=== PATIENT | male | born 1975 | race Caucasian/White ===

== ENCOUNTER 2018-08-16 10:19 | Observation (INO) ==
[2018-08-16] MEDS ORDERED: Ibuprofen 400 MG TABLET PO PRN ×2 (11:37→15:20)
[2018-08-16] MEDS ORDERED: Naloxone 0.4 MG/ML INJ IVP PRN ×2 (11:37→15:20)
[2018-08-16] MEDS ORDERED: *HR* OxyCODONE Immed Rel 5 MG TABLET PO PRN ×4 (11:37→15:20)
[2018-08-16] MEDS ORDERED: *HR* HYDROcodone/Acet 5/325 mg TABLET PO PRN (11:37)
[2018-08-16] MEDS ORDERED: *HR* Midazolam HCl 2 MG/2 ML VIAL ONE ×2 (11:45→12:50)
[2018-08-16] MEDS ORDERED: *HR* Propofol 200 MG/20 ML VIAL IVP ONE (11:45)
[2018-08-16] MEDS ORDERED: *HR* FentaNYL (PF) 100 MCG/2 ML VIAL ONE ×2 (11:45→13:28)
[2018-08-16] MEDS ORDERED: Lidocaine -MPF 2% 2 ML VIAL ONE (11:45)
--- NOTE | 2018-08-16 12:00 | Orthopedic History & Physical ---
Date of Encounter: 08/16/18 Time of Encounter: 11:54 Assessment and Plan (1) Puncture wound of hand, right Current visit: No Status: Acute I did discuss the diagnosis in detail with the patient. He did have a puncture wound to the right hand going into the radial wrist area from a muzzle barge loader. The patient does not believe there was any significant dirt on the end of the muzzle barge loader however he is not entirely sure. I did discuss options with the patient and my recommendation is for debridement and irrigation at the base of the right thumb given my concern for contamination of the trapezium fracture. We will also remove the bony fragment along the radial wrist area. The risks discussed included but were not limited to stiffness, bleeding, infection, blood clots, damage to neurovascular structures, tendons, ligaments, and bone. Also discussed was the risk of continued symptoms and possible need for further procedures. I did discuss the anesthesia risks including stroke, heart attack, and . I did discuss the reasonable, foreseeable postoperative course with the patient. The patient did wish to proceed and consent was obtained. We will keep him overnight for 24 hours of antibiotic coverage and discharge him tomorrow. Qualifiers: Encounter type: initial encounter Foreign body presence: without foreign body Qualified Code(s): S61.431A - Puncture wound without foreign body of right hand, initial encounter History of Present Illness HPI: Mr. Nathan is a 43 year old male who is otherwise healthy. He was using a muzzle barge loader when the metal leydi used to push the bullet into the gun impaled the palm of his hand at the base of the thenar eminence and pushed the volar tubercle of the trapezium into the radial wrist area. Due to concern for contamination he was transferred to our facility for operative washout. He complains of isolated pain to the base of the right thumb. He complains of this is an isolated injury. He denies any numbness, tingling, or any other associated signs or symptoms or modifying factors. He received a tetanus shot in the ER and also a dose of antibiotics. Past Med Surg Social Fam HX - Past Medical History Medical history: hyperlipidemia Psychiatric history: no psych history - Past Surgical History Surgical History: no surgical history - Social History Smoking Status: Current some day smoker Smokeless Tobacco Status: Yes Alcohol use: occasionally, recent Drug use: none Medications and Allergies Allergy/AdvReac Type Severity Reaction Status Date / Time Penicillins Allergy Rash Verified 08/16/18 09:13 All Systems Reviewed: Constitutional -The patient denies any fevers, chills, or feelings of illness Neurologic -The patient denies any numbness, tingling, or burning pains Physical Exam - Constitutional Exam: CONSTITUTIONAL -Vitals: Reviewed -General Appearance: The patient is well developed, well nourished, well groomed PSYCHIATRIC -Orientation: Fully alert and oriented to person, place, and time -Mood and Affect: Pleasant MUSCULOSKELETAL Gait: Normal RIGHT UPPER EXTREMITY -Inspection: No deformities. -Wounds: Small wound at the volar base of the thenar eminence -Swelling: Mild swelling in the area of the injury -Erythma: Absent -Concern for infection: None -Palpable lesions: Palpable bony lesion at the radial wrist -Tenderness: Tenderness over the thenar eminence -Range of motion elbow: Full -Range of forearm rotation: Full -Range of motion wrist: Full -Range of motion: digits: Full -Digital flexion: Present -Digital extension: Present -Thumb extension: Present -Can make an "okay" sign: Yes -Intrinsic function: Present -Thumb opposition: Present -Strength and tone at elbow: 5/5 strength with elbow flexion and extension; tone normal -Strength and tone at wrist: 5/5 strength with wrist flexion and extension; tone normal -Grader Meat strength and tone: 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 -Fingertips: Well perfused with good capillary refill -Radial artery pulse: Intact Stability assessment -Elbow: No instability -Wrist: No instability -Digits: No instability -Bridges Shift Test: Negative -Scapholunate ballotment: Negative Diagnostic Imaging: I did personally review and interpret x-rays and the CT scan of the right hand/wrist area demonstrate a volar tubercle injury to the trapezium with retained bony fragments into the radial wrist area Results - Labs Labs: All other labs normal.
[2018-08-16 12:08] LABS: Hematocrit 45.2 % (37.5-50.1); Hemoglobin 15.7 g/dL (12.9-16.9); Mean Corpuscular HGB Conc 34.7 g/dL (31.6-35.5); Mean Corpuscular Hemoglobin 27.1 pg (28.0-33.3); Mean Corpuscular Volume 78.1 fL (83.0-100.0); Mean Platelet Volume 10.2 fL (9.4-12.4); Platelet Count 194 K/mcL (140-400); Red Blood Count 5.79 M/mcL (4.19-5.50)
[2018-08-16 12:23] LABS: BUN/Creatinine Ratio 15 (6-26); Blood Urea Nitrogen 14 mg/dL (6-20); Calcium 9.3 mg/dL (8.6-10.3); Carbon Dioxide 27 mEq/L (23-29); Chloride 103 mEq/L (98-107); Glucose 89 mg/dL (70-105); Osmolality,Calculated 284 (280-300); Potassium 4.2 mEq/L (3.5-5.1); Sodium 137 mEq/L (136-145); eGFR For Non-African Americans > 60 (> 60)
[2018-08-16] MEDS ORDERED: Clindamycin 900 MG/50 ML 900 MG/50 ML IV.SOLN IVPB ONE ×2 (12:38→13:05)
--- NOTE | 2018-08-16 12:57 | Anesthesia Evaluation PreOp ---
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: Other (anxiety) Other Medical History: Other (BMI 37) Anesthesia History: No Prior Anesthetic Complications (never had anesthesia except wisdom teeth surgery; no fhx of problems with anesthesia) Alcohol Use: occasionally, recent Drug use: none Medications and Allergies Allergy/AdvReac Type Severity Reaction Status Date / Time Penicillins Allergy Rash Verified 08/16/18 09:13 - Meds/Allergy Pre-op Review Medications Reviewed: Yes Allergies Reviewed: Yes Beta Blockers on Current Med List: No Anesthesia Results - Labs 08/16/18 11:53 08/16/18 11:53 Anesthesia Exam Last Vital Signs Temp 98.8 F 08/16/18 11:55 Pulse 72 08/16/18 11:55 Resp 16 08/16/18 11:55 BP 167/99 08/16/18 11:55 Pulse Ox 99 08/16/18 11:55 Weight: 109 kg NPO (# of Hours): > 8 hrs - HEENT Pupil (Motor): Pupils equal, EOMI Mallampati: III Teeth: Normal Oral Opening: Greater than 3 - MARBLE CUTTER OPERATOR LOC: Oriented - Cardiac Rhythm: Regular Murmur: Systolic (low-grade) - Pulmonary Breath Sounds: bilateral Clear Respiratory Effort: Symmetrical Anesthesia Assess/Plan ASA Score: 2 Level of consciousness: Cooperative Anesthetic Plan: General Monitoring Plan: Standard Monitors Recovery Plan: PACU
[2018-08-16] MEDS ORDERED: Ondansetron 4 MG/2 ML VIAL ONE (13:04)
[2018-08-16] MEDS ORDERED: Dexamethasone 4 MG/ML VIAL ONE (13:04)
[2018-08-16] MEDS ORDERED: Ringers Solution, Lactated 1,000 ML IVC SCH ×2 (13:05→15:20)
[2018-08-16] MEDS ORDERED: *HR* Promethazine 25 MG/ML VIAL IVP PRN ×2 (13:26→15:20)
[2018-08-16] MEDS ORDERED: Ketorolac 30 MG/ML VIAL ONE ×2 (13:51)
[2018-08-16] MEDS ORDERED: Bupivacaine/EPI 1:200k 0.5%PF 10 ML VIAL ONE (14:05)
--- NOTE | 2018-08-16 14:37 | Orthopedic Operative Note ---
Date of procedure: 08/16/18 Procedure: OPERATIVE REPORT SURGEON: Deacon Waterman MD PREOPERATIVE DIAGNOSIS: Right open trapezium fracture after impaling injury POSTOPERATIVE DIAGNOSIS: Right open trapezium fracture after impaling injury PROCEDURE: Debridement and irrigation of the right hand including the trapezium. ANESTHESIA: General anesthesia PREOPERATIVE NOTE The surgical plan was reviewed with the patient. The risks, benefits, alternatives, and potential complications of this procedure were discussed with the patient including injury to veins, arteries, nerves, tendons, ligaments, and bone. Also discussed were the risks of infection, bleeding, pain, blood clots, the possible need for a blood transfusion, the possible need for further procedures, heart attack, stroke, and . Additional risks include need for further debridements. All of this was explained in simple terms, and the patient verbalized understanding and wished to proceed. Consent was given to proceed with surgery. PROCEDURE: The patient was seen in the preoperative holding area where the identify and the consent were confirmed. The right hand was marked. Final questions were answered. The patient was brought back to the operating room and placed supine on the operating room table. A huddle was performed with the patient and all vital surgical team members confirming patient identity, the correct procedure, and the correct operative site. Gen. anesthesia was administered. The operative extremity was prepped and draped in the usual sterile fashion. A surgical time out was performed immediately preceding the incision with all personnel in the operating room to confirm patient identity, the correct operative site and extremity, correct radiographic studies, availability of appropriate surgical equipment, and agreement on the planned procedure. : Was exsanguinated and the tourniquet was inflated. A small 1 cm incision was made radially at the wrist over the bone fragment. The subcutaneous tissue spread apart and a small devitalized piece of the trapezium was identified and excised. The wound was copiously irrigated. The entry wound was spread open and also copiously irrigated. In order to debride the tract of the montserrat leydi as well as the trapezium body, a Reeves incision was made and a full-thickness flap was elevated taking care to protect the superficial branches of the radial nerve. The thenar eminence was identified and elevated off the trapezium identifying the fracture. There are multiple small devitalized fragments of the trapezium which were excised. The overall architecture of the trapezium was intact. The wound was copiously irrigated and the thenar eminence was repaired with a 3-0 Vicryl stitch. The Reeves incision was closed with interrupted nylon stitches. The other 2 wounds were left open to drain. A soft, sterile dressing was applied as well as a thumb spica splint. The instrument, sponge, and needle counts were correct after wound closure. POST OPERATIVE PLAN: The patient will continue 24 hours of antibiotic coverage IV in the hospital and at that point we will discharge him. Elevation. Ambulation and SCDs for DVT prophylaxis. Was there an wet process assistant head miller present: No Estimated blood loss (cc): 1
[2018-08-16] MEDS: *HR* HYDROmorphone (PF) 1 MG/ML SYRINGE IVP PRN ×4 (14:43→14:58)
[2018-08-16] MEDS ORDERED: *HR* HYDROmorphone (PF) 1 MG/ML SYRINGE IVP PRN (15:20)
--- NOTE | 2018-08-16 15:32 | Anesthesia Evaluation Post Op ---
Date of Encounter: 08/16/18 Time of Encounter: 15:32 - Vital Signs Vital Signs: Last Vital Signs Temp 97.7 F 08/16/18 15:23 Pulse 68 08/16/18 15:23 Resp 16 08/16/18 15:12 BP 166/99 08/16/18 15:23 Pulse Ox 99 08/16/18 15:23 - Lungs Lungs: Clear Ascult./Percussion - Airway Airway: Non-obstructed - Cardiovascular Regular Rate - Mental Status Mental Status: Alert & Oriented, Answers Appropriately - Pain Pain Scale: 5 - Nausea Vomiting Nausea Vomiting: Not Present - Hydration Hydration: Ice chips - Discharge PostOp Status: Transfer Patient to floor
[2018-08-16] MEDS ORDERED: Clindamycin 900 MG/50 ML 900 MG/50 ML IV.SOLN IVPB SCH (16:00)
[2018-08-16] MEDS: *HR* HYDROcodone/Acet 5/325 mg TABLET PO PRN (16:06)
--- NOTE | 2018-08-16 16:56 | Internal Medicine Consult Note ---
Date of Encounter: 08/16/18 Time of Encounter: 16:54 - Assessment and plan (1) Puncture wound of hand, right Current Visit: No Status: Acute Assessment and plan: Right hand open wound, s/p debridement and irrigation of the right hand including the trapezium on 08/16. On abx per ortho. Qualifiers: Encounter type: initial encounter Foreign body presence: without foreign b ruslan Qualified Code(s): S61.431A - Puncture wound without foreign body of right hand, initial encounter (2) Fx trapezium bone-open Current Visit: No Status: Acute Assessment and plan: - same as above. Qualifiers: Encounter type: initial encounter Fracture alignment: displaced Laterality: right Qualified Code(s): S62.171B - Displaced fracture of trapezium [larger multangular], right wrist, initial encounter for open fracture (3) HTN (hypertension) Current Visit: Yes Status: Acute Assessment and plan: Pt started on Norvasc on daily dose. Hydralazine as needed for SBP>160. will monitoring BP, and adjust meds if indicated. Appreciate orthopedics for letting us involved in the care of this patient. Qualifiers: Hypertension type: essential hypertension Qualified Code(s): I10 - Essential (primary) hypertension (4) DVT prophylaxis Current Visit: Yes Status: Acute Assessment and plan: SCDs - Time Spent With Patient Total time spent is greater than 50% in coordination of care (as documented) at patient's floor/unit and/or counseling patient: Greater than 35 minutes Internal Medicine - CN: HPI - Data of Consult Patient: new to practice Consult date: 08/16/18 Requesting Physician: Deacon Waterman MD - Consult Narrative Reason for consult: HTN History of present illness: Mr. Nathan is a 43 year old male who is otherwise healthy. He was using a muzzle truck loader overhead crane when the metal leydi used to push the bullet into the gun impaled the palm of his hand at the base of the thenar eminence and pushed the volar tubercle of the trapezium into the radial wrist area. Due to concern for contamination he was transferred to our facility for operative washout. He complains of isolated pain to the base of the right thumb. He complains of this is an isolated injury. He denies any numbness, tingling, or any other associated signs or symptoms or modifying factors. He received a tetanus shot in the ER and also a dose of antibiotics. He underwent right hand debridement and irrigation by Dr. Waterman on 08/16. Hospitalist group was consulted for medical management including managing HTN. Past Med Surg Social Fam HX - Past Medical History Medical history: hyperlipidemia Additional medical history: Head pressure/pain-- done outpatient work up and on a medication for this but does not take it or know name. Psychiatric history: no psych history - Past Surgical History Surgical History: no surgical history - Social History Smoking Status: Current some day smoker Smokeless Tobacco Status: Yes Alcohol use: occasionally, recent Drug use: none Review of systems: REVIEW OF SYSTEMS: CONSTITUTIONAL: No weight loss, fever, chills, weakness or fatigue. HEENT: Eyes: No visual loss, blurred vision, double vision or yellow sclerae. Ears, Nose, Throat: No hearing loss, sneezing, congestion, runny nose or sore throat. SKIN: No rash or itching. CARDIOVASCULAR: No chest pain, chest pressure or chest discomfort. No palpitations or edema. RESPIRATORY: No shortness of breath, cough or sputum. GASTROINTESTINAL: No anorexia, nausea, vomiting or diarrhea. No abdominal pain or blood. GENITOURINARY: No dysuria, urgency, or frequency. NEUROLOGICAL: No headache, dizziness, syncope, paralysis, ataxia, numbness or tingling in the extremities. No change in bowel or bladder control. MUSCULOSKELETAL: see HPI. HEMATOLOGIC: No anemia, bleeding or bruising. LYMPHATICS: No enlarged nodes. No history of splenectomy. PSYCHIATRIC: No history of depression or anxiety. ENDOCRINOLOGIC: No reports of sweating, cold or heat intolerance. No polyuria or polydipsia. Internal Medicine - CN: Meds No Known Home Drugs 08/16/18 [History] Allergy/AdvReac Type Severity Reaction Status Date / Time Penicillins Allergy Rash Verified 08/16/18 09:13 Hospitalist - CN: Exam - Constitutional Vitals: Temp Pulse Resp BP Pulse Ox 97.7 F 63 16 156/103 95 08/16/18 15:23 08/16/18 16:02 08/16/18 15:12 08/16/18 16:02 08/16/18 16:02 General appearance IM: Present: cooperative, A&O X 3, answers questions appropriately Exam: PHYSICAL EXAMINATION: GENERAL APPEARANCE: The patient is alert, oriented and in no acute distress. HEENT: Head is normocephalic. The sinuses are nontender. Pupils are equal and reactive. The nares are patent. Oropharynx clear without lesions. NECK: Supple without lymphadenopathy. HEART: Regular rate and rhythm. LUNGS: No crackles or wheezes are heard. ABDOMEN: Soft, nontender, nondistended with good bowel sounds heard. Inguinal area is normal. EXTREMITIES: right hand covered with dressing. NEUROLOGICAL: Gross nonfocal. SKIN: Warm and dry without any rash. Internal Medicine - CN: Reslt - Labs CBC & Chem 7: 08/16/18 11:53 08/16/18 11:53 Labs: Short CBC 08/16/18 Range/Units 11:53 WBC 8.7 (4.3-11.1) K/mcL Hgb 15.7 (12.9-16.9) g/dL Hct 45.2 (37.5-50.1) % Plt Count 194 (140-400) K/mcL BMP 08/16/18 11:53 Sodium 137 Potassium 4.2 Chloride 103 Carbon Dioxide 27 BUN 14 Creatinine 0.91 Glucose 89 Calcium 9.3 - Impressions Impressions Fluoroscopy 08/16/18 13:10 IMPRESSION: Intra procedural images of right wrist. See procedure note for further details. D/ / Olivia Soliman Cha, MD / Olivia Soliman Cha, MD Interpreting Provider: Olivia Soliman Cha, MD Consult Discharge Plan - Plan Referrals: Moises Gandara MD [Primary Care Provider] -
[2018-08-16] MEDS: amLODIPine 5 MG TABLET PO SCH (17:12)
[2018-08-16] MEDS: Clindamycin 900 MG/50 ML 900 MG/50 ML IV.SOLN IVPB SCH (20:22)
[2018-08-17] MEDS: *HR* HYDROcodone/Acet 5/325 mg TABLET PO PRN (00:21)
[2018-08-17] MEDS: Clindamycin 900 MG/50 ML 900 MG/50 ML IV.SOLN IVPB SCH (04:53)
--- NOTE | 2018-08-17 09:40 | Orthopedics Progress Note ---
Date of Encounter: 08/17/18 Time of Encounter: 09:34 - Assessment and Plan (1) Puncture wound of hand, right Current Visit: No Status: Acute I did discuss the diagnosis in detail with the patient. He did have a puncture wound to the right hand going into the radial wrist area from a muzzle cartridge loader. The patient does not believe there was any significant dirt on the end of the muzzle cartridge loader however he is not entirely sure. I did discuss options with the patient and my recommendation is for debridement and irrigation at the base of the right thumb given my concern for contamination of the trapezium fracture. We will also remove the bony fragment along the radial wrist area. The risks discussed included but were not limited to stiffness, bleeding, infection, blood clots, damage to neurovascular structures, tendons, ligaments, and bone. Also discussed was the risk of continued symptoms and possible need for further procedures. I did discuss the anesthesia risks including stroke, heart attack, and . I did discuss the reasonable, foreseeable postoperative course with the patient. The patient did wish to proceed and consent was obtained. We will keep him overnight for 24 hours of antibiotic coverage and discharge him tomorrow. Qualifiers: Encounter type: initial encounter Foreign body presence: without foreign body Qualified Code(s): S61.431A - Puncture wound without foreign body of right hand, initial encounter Subjective Interval history: S: Pain well-controlled overnight No new injuries or complaints Was seen yesterday by Dr. Fox due to hypertension. O: Afebrile; Vital signs stable with elevated blood pressures Right hand wounds are evaluated and they are clean and dry without any drainage The patient can actively flex and extend all digits, extend the thumb, cross the index and long fingers, make an okay sign, and oppose the thumb. The fingertips are all grossly sensate and well-perfused, and the radial artery pulse is 2+. Sterile dressing applied with thumb spica splint A: Post I&D of the right hand P: At this point the patient is with weekly stable for discharge I did discuss with Dr. Fox and he recommended 5 mg of Norvasc to go home with and to supply a seven-day supply and follow-up with his family practice doctor. I will see the patient back on Saturday for a wound reevaluation or sooner if needed. He will call the office sooner for any new or worsening concerns before then. Objective Vital signs: Vital Signs Temp Pulse Resp BP Pulse Ox 08/17/18 06:41 98.5 F 68 16 144/73 97 08/17/18 04:55 98.4 F 62 16 143/67 95 08/17/18 00:16 97.8 F 66 16 145/94 94 08/16/18 19:07 98.3 F 85 16 140/85 93 08/16/18 17:12 98.2 F 65 16 153/96 94 08/16/18 16:02 63 156/103 95 08/16/18 15:23 97.7 F 68 166/99 99 08/16/18 15:12 97.6 F 65 16 153/99 97 08/16/18 15:02 63 16 148/96 98 08/16/18 14:52 97.2 F L 64 16 150/101 99 08/16/18 14:42 65 19 150/98 98 08/16/18 14:32 63 15 139/90 98 08/16/18 14:22 99.0 F 72 12 152/95 95 08/16/18 11:55 98.8 F 72 16 167/99 99 Intake and Output 08/16/18 08/17/18 08/17/18 23:59 07:59 15:59 Intake Total 840 / 840 600 / 600 Output Total 0 / 0 0 / 0 Balance 840 / 840 600 / 600 Intake: IV Fluids 50 / 50 50 / 50 Cleocin Premix 900 MG/50 ML 900 50 / 50 50 / 50 mg In 50 ml @ 50 mls/hr IVPB Q8H [facility] Rx#:[id number] Oral 790 / 790 550 / 550 Output: Urine 0 / 0 0 / 0 Other: Meal Dinner Percent of Meal Consumed 100% # Voids 1 1 Weight 110.3 kg Patient Weight 08/17/18 23:59 Weight 110.3 kg - Labs CBC & BMP: 08/16/18 11:53 08/16/18 11:53 Labs: Abnormal lab results RBC 5.79 M/mcL (4.19-5.50) H 08/16/18 11:53 MCV 78.1 fL (83.0-100.0) L 08/16/18 11:53 MCH 27.1 pg (28.0-33.3) L 08/16/18 11:53 Consult Discharge Plan - Plan Referrals: Moises Gandara MD [Primary Care Provider] -
--- NOTE | 2018-08-17 09:43 | Discharge Summary ---
Orders not resulted at time of discharge: Pending orders 08/16/18 13:10 XR wrist complete 3V RT [XR] Routine Date of Encounter: 08/17/18 Time of Encounter: 09:40 - Discharge Diagnosis (1) Puncture wound of hand, right Priority: Primary Status: Acute Qualifiers: Encounter type: initial encounter Foreign body presence: without foreign body Qualified Code(s): S61.431A - Puncture wound without foreign body of right hand, initial encounter - Hospital Course Hospital course: Mr. Nathan is a 43 year old male who is admitted after a puncture wound to the right hand resulted in a trapezium fracture. He underwent operative washout and had an uneventful postoperative course with the exception of hypertension which he was seen by the hospitalist. They recommended 5 mg of Norvasc to go home with. The patient received 24 hours coverage of antibiotics and is stable for discharge. He will go home with his thumb spica splint and I will see him on Saturday morning for wound reevaluation. I instructed the patient to keep the dressing clean, dry, and intact and did not take it off or get wet or dirty. I did recommend elevation and we will prescribe him [place] upon discharge. - Time Spent with Patient Total time spent providing and/or coordinating discharge services: - Discharge Medications Prescriptions: amLODIPine [Norvasc] 5 mg PO DAILY #7 tablet HYDROcodone/Acet 7.5/325 mg [[place] 7.5-325 mg] 1 tab PO Q6H PRN 7 Days #28 tablet PRN Reason: Pain Home Medications: HYDROcodone/Acet 7.5/325 mg [[place] 7.5-325 mg] 1 tab PO Q6H PRN 7 Days #28 tablet 08/17/18 [Rx] amLODIPine [Norvasc] 5 mg PO DAILY #7 tablet 08/17/18 [Rx] Allergies/Adverse Reactions: Allergy/AdvReac Type Severity Reaction Status Date / Time Penicillins Allergy Rash Verified 08/16/18 09:13 Date of admission: 08/16/18 11:27 Primary care physician: Moises Gandara MD Consults: 08/16/18 16:45 Consult to Hospitalist [CONS] Routine Consulting Provider: Hospitalist Klarissa Reason for Consult: Hypertension Time Notified: 16:46 Call Completed: Yes Labs on day of discharge: Labs from last 24 hours 08/16/18 08/16/18 11:53 11:53 WBC 8.7 RBC 5.79 H Hgb 15.7 Hct 45.2 MCV 78.1 L MCH 27.1 L MCHC 34.7 RDW 13.0 Plt Count 194 MPV 10.2 Sodium 137 Potassium 4.2 Chloride 103 Carbon Dioxide 27 BUN 14 Creatinine 0.91 Est GFR ( Amer) > 60 Est GFR (Non-Af Amer) > 60 BUN/Creatinine Ratio 15 Glucose 89 Calculated Osmolality 284 Calcium 9.3 - Impressions ITS Impressions Fluoroscopy 08/16/18 13:10 IMPRESSION: Intra procedural images of right wrist. See procedure note for further details. D/ / Olivia Soliman Cha, MD / Olivia Soliman Cha, MD Interpreting Provider: Olivia Soliman Cha, MD - Patient Status Disposition: Home, Self-Care - Discharge Instructions Follow Up With: Moises Gandara MD [Primary Care Provider] - Additional Instructions: DISCHARGE INSTRUCTIONS Dr. Waterman DISCHARGE DIAGNOSIS/PROCEDURE Washout of the right hand penetrating wound ACTIVITY: Avoid aggressive activities with arm in which you were operated. Okay to move your fingers which will be good exercise. Do not move her thumb. WOUND CARE: Keep the dressing clean, dry, and intact. Do not take dressing off or get wet or dirty. DRIVING: Do not drive while taking narcotic pain medications. DIET: Begin with clear liquids, and then increase your diet as you feel comfortable. MEDICATIONS: Pain: [place] Hypertension medication: [facility] FOLLOW-UP Follow-up with Dr. Waterman or Brooke Lou PA-C at the office 08/20/18 for a post operative evaluation. Call the office at [phone] to schedule or confirm your appointment. WHEN TO CALL THE DOCTOR OR WHEN TO SEEK CARE BEFORE YOUR APPOINTMENT 1. Excess swelling or increased numbness not made better by elevating the hand and moving the fingers. 2. Uncontrolled pain. 3. A color change in your hand or fingers. 4. Worsening redness or drainage. 5. Fevers over 100.5 degrees F or 38.1 degrees C. 6. Any symptoms that bring concern to you. - Diet and Activity Diet: advance to your usual diet
[2018-08-17] MEDS: amLODIPine 5 MG TABLET PO SCH (09:45)
[2018-08-17 11:12] VITALS: BP 133/76
== END 2018-08-17 11:00 | disposition home or self-care (01) ==
LOC: 3NENU
PROVIDERS: ADMIT Orthopaedic Surgery Hand Surgery; ATTEND Orthopaedic Surgery Hand Surgery